=== PATIENT | male | born 1940 | race Asian ===

== ENCOUNTER 2021-02-23 08:34 | Day surgery (SDC) | payer OTHER, BC ==
[2021-02-16 12:50] VITALS: BMI 24.1
[2021-02-23 09:52] VITALS: TEMP 97.8
[2021-02-23 10:26] VITALS: BP 132/74; PULSE 68
== END 2021-02-23 10:15 | disposition home or self-care (01) ==
LOC: FASU-ENDO 08:34
PROVIDERS: ATTEND Internal Medicine Gastroenterology
PROC: 0DJD8ZZ Inspection of Lower Intestinal Tract, Via Natural or Artificial Opening Endoscopic (ICD-10-PCS; principal; 2021-02-23 09:15)
DX: K52.9 Noninfective gastroenteritis and colitis, unspecified (principal); K59.00 Constipation, unspecified; K62.89 Other specified diseases of anus and rectum
CPT/HCPCS: 82962